=== PATIENT | female | born 1975 | race African-American/Black ===

== ENCOUNTER 2017-04-15 09:40 | Observation (INO) | payer OTHER ==
--- NOTE | ~2017-04-15 | EKG ---
PATIENT: VEE CUNHA UNIT #: [id number] Ventricular Rate: 70 BPM Atrial Rate: 70 BPM P-R Interval: 258 ms QRS Duration: 96 ms Q-T Interval: 380 ms QTC Calculation(Bezet): 410 ms P [place]: 61 degrees Calculated R [place]: -123 degrees Calculated T [place]: 46 degrees Diagnosis Line: Sinus rhythm with 1st degree A-V block Diagnosis Line: Indeterminate axis Diagnosis Line: Low voltage QRS Diagnosis Line: Cannot rule out Anterior infarct , age Diagnosis Line: undetermined Diagnosis Line: Abnormal ECG Diagnosis Line: When compared with ECG of 08-SEP-2015 07:44, Diagnosis Line: No significant change was found Diagnosis Line: Confirmed by COURTNEY COKER MD ([id number]) on Diagnosis Line: 04/17/2017 8:50:58 AM INTERPRETING MD: SHEELA WATKINS
--- NOTE | ~2017-04-15 | CT16 ---
[facility] A Service [facility] RADIOLOGY TEXT RESULTS PATIENT: VEE CUNHA LOCATION: [place] [address] : 75 UNIT #: [id number] AGE: [address]: Zuleika Quintero MD SEX: F ORDER DR: [id number] [address] [address] [id number] MR#: [id number] Acc #: [id number] NAME: VEE CUNHA : 1975 SEX: F STUDY DATE/TIME: 04/15/2017 11:59 UNIT: SED ROOM: STUDY DESCRIPTION: CT Angio Chest for PE Attending Physician: Livan Alicea M.D. Ordering Physician: Livan Alicea M.D. Primary Care Physician: No Primary Care Physician MEDICAL IMAGING REPORT This report is preliminary unless electronic signature is present. EXAM CT chest PE protocol HISTORY Chest pain starting yesterday. COMPARISON CT chest 09/07/2015. FINDINGS Axial images performed through the chest following IV contrast. 3D coronal and sagittal reconstructed images were reviewed at a workstation. This CT exam was performed with one or more of the following radiation dose reduction techniques: automatic exposure control, adjustment of mA and/or kV according to patient size, and iterative reconstruction. Pulmonary parenchyma normal. Trachea and bronchi unremarkable. Normal enhancement of the pulmonary arteries. Heart and aorta appear normal. No significant mediastinal or hilar lymphadenopathy. Visualized upper abdomen appears normal. Osseous structures, thoracic inlet appear normal. IMPRESSION Normal CT chest PE protocol. Dictated by... Tommy Rojas M.D. THIS IS AN ELECTRONICALLY VERIFIED REPORT Tommy Rojas M.D. at 04/15/2017 3:57 PM [facility] A Service [facility] RADIOLOGY TEXT RESULTS PATIENT: VEE CUNHA LOCATION: [place] [address] : 75 UNIT #: [id number] AGE: [address]: Zlueika Quintero MD SEX: F ORDER DR: Harshad TD: 04/15/2017 13:13 JOB #: [id number] MEDICAL IMAGING REPORT Page 1 of 1
--- NOTE | ~2017-04-15 | TH ---
Unit #: [id number] #: [id number] Patient: VEE CUNHA [id number] [address] [address] [id number] I MR#: [id number] NAME: VEE CUNHA : 1975 SEX: F STUDY DATE/TIME: 04/16/2017 UNIT: C5B ROOM: 562 STUDY DESCRIPTION: Lexiscan stress test - Nuclear Attending Physician: Zuleika Quintero M.D. Primary Care Physician: No Primary Care Physician CARDIOLOGY REPORT PROCEDURE PERFORMED Lexiscan Cardiolite stress test - Nuclear portion. PROCEDURE Using technetium 99m-labeled Cardiolite, rest and stress SPECT images were obtained. Multiple SPECT images were obtained in various views, including horizontal and vertical long axis and short axis views of the left ventricle. Images were obtained by gated SPECT method. The patient was administered 10.93 mCi of Cardiolite at rest. The patient was administered 31.3 mCi of Cardiolite after Lexiscan infusion was completed. On the stress images, there is normal perfusion noted. The rest images show normal perfusion. Comparing the rest and stress images, there is no stress-induced ischemia noted. The left ventricular ejection fraction is calculated to be 54%. There is no focal wall motion abnormality seen. CONCLUSION 1. No stress-induced ischemia noted. 2. The left ventricular ejection fraction is calculated to be 54%. 3. There is no focal wall motion abnormality seen. 4. Normal Lexiscan Cardiolite stress test. Dictated by... Avi Escamilla/giovanni TD: 04/16/2017 15:56 JOB #: [id number] CARDIOLOGY REPORT Page 1 of 1 X Zuleika Quintero MD <ELECTRONICALLY SIGNED> 06/15/17 1429 CARDIOLOGY REPORT
--- NOTE | ~2017-04-15 | DS ---
Unit #: [id number] #: [id number] Patient: VEE CUNHA [id number] [address] [address] [id number] I MR#: [id number] NAME: VEE CUNHA ROOM: 562 Age: 41 Sex: F Admission Date: 04/15/2017 : 1975 Discharge Date: 04/16/2017 Attending Physician: Zuleika Quintero M.D. Primary Care Physician: Dana Primary Care Physician DISCHARGE SUMMARY ADDENDUM The discharge date was 04/16/2017 with a discharge time of 1801 hours. Dictated by... CHENTE Lee TD: 04/24/2017 11:39 JOB #: [id number] DISCHARGE SUMMARY Page 1 of 1 X X DISCHARGE SUMMARY
--- NOTE | ~2017-04-15 | DS ---
Unit #: [id number] #: [id number] Patient: VEE CUNHA [id number] [facility]. [address] [address] [id number] I MR#: [id number] NAME: VEE CUNHA. ROOM: 562 Age: 41 Sex: F Admission Date: 04/15/2017 : 1975 Discharge Date: Attending Physician: Zuleika Quintero M.D. Primary Care Physician: No Primary Care Physician DISCHARGE SUMMARY SHORT-STAY SUMMARY HISTORY OF PRESENT ILLNESS This is a 41-year-old female who presented to [facility] with a complaint of chest pain. Yesterday, at approximately 3 p.m., she began to have left upper anterior chest pain which she describes as sharp that is nonradiating to her neck, arm, or jaw. The pain has been constant with no change with activity or movement. Today, she developed shortness of breath that accompanied chest pain. She went to [facility] for evaluation where initial troponin was negative. Electrocardiogram found her to have no acute ischemic changes. She denies a history of hypertension, hyperlipidemia, or diabetes. She does smoke cigars. She had a stress test several years ago which she was told was normal. PAST MEDICAL HISTORY 1. Gastroesophageal reflux disease. 2. Transient ischemic attack in 2012. 3. Active cigar smoker. 4. Active marijuana use. 5. Weight loss of approximately 20 pounds. PAST SURGICAL HISTORY 1. Tubal ligation. 2. section. SOCIAL HISTORY The patient works for the [employer]. She smokes two cigars daily. She admits to smoking marijuana. FAMILY HISTORY Negative for coronary artery disease. ALLERGIES Demerol and morphine. HOME MEDICATIONS No current medications. REVIEW OF SYSTEMS CONSTITUTIONAL: Positive for weight loss. She reports weighing 200 pounds in her 20s but now down to 150 pounds. No weight gain. HEENT: Positive for headache but no hearing or vision changes or difficulty with swallowing. No dizziness. Unit #: [id number] #: [id number] Patient: VEE CUNHA CARDIOVASCULAR: Has chest pain as described in the History of Present Illness. Denies palpitations. No paroxysmal nocturnal dyspnea or orthopnea. Denies syncope or near syncope. RESPIRATORY: Had dyspnea that accompanies chest pain. No cough or hemoptysis. GASTROINTESTINAL: No abdominal pain, nausea, or vomiting. No constipation or melena. EXTREMITIES: Negative for lower extremity edema. PHYSICAL EXAMINATION VITAL SIGNS: Blood pressure 130/68, heart rate 56, and temperature 98.3. GENERAL: This is a thin, 41-year-old female who is in no acute respiratory distress. EYES: Noted for bulging. NEUROLOGIC: She is awake, alert, and oriented. There are no focal weaknesses. NECK: Trachea is midline. No thyromegaly or lymphadenopathy. No jugular venous distention. HEART: S1 and S2 heart sounds are normal. No murmurs, rubs, or clicks. Regular rate and rhythm. LUNGS: Clear without rales, rhonchi, or wheezing. ABDOMEN: Soft and nontender with bowel sounds present. EXTREMITIES: Without leg edema. DIAGNOSTIC STUDIES LABORATORY: Glucose 98, BUN 12, creatinine 0.6, sodium 131, and potassium 4.1. Troponin less than 0.03 and less than 0.05 x2. Beta hCG negative. White count 9.3, hemoglobin 12.9, hematocrit 40, and platelet count is 182,000. IMAGING: CT of the chest is normal. CARDIOLOGY: EKG shows normal sinus rhythm with a first degree AV block with poor R wave progression. Low voltage QRS. IMPRESSION 1. Chest pain, rule out myocardial infarction. 2. Dyspnea. 3. History of transient ischemic attack. 4. Nicotine abuse. 5. Weight loss. PLAN 1. Will continue to trend troponin to rule out myocardial infarction. If normal, will proceed with exercise Cardiolite stress test in the a.m. 2. Lipid profile will be done. 3. Will also obtain thyroid functions to rule out thyroid disease. 4. Hemoglobin A1c will also be obtained. 5. Start the patient on anticoagulation with aspirin and Lovenox. 6. If stress test is negative, the patient can be discharged home. HOSPITAL COURSE The patient underwent Lexiscan Cardiolite stress test which found her to have no ischemia and ejection fraction of 54%. Echocardiogram showed ejection fraction of 60% with mild mitral regurgitation and trivial(?) mitral valve prolapse. There was mild tricuspid regurgitation and right ventricular systolic pressure of 34 mmHg. Cholesterol level was 145, triglycerides 65, LDL 83, HDL 49. TSH was 5.08. A CT of the chest was Unit #: [id number] #: [id number] Patient: ALPHONSE,VEE L negative for PE. She is stable for discharge home today. HOME MEDICINCES Include Tylenol 650 mg q.4 h. p.r.n. for pain. FOLLOWUP She can follow up with primary care physician in one to two weeks. JOB #: [id number] Dictated by... Sandra Henson/zana TD: 04/16/2017 17:46 JOB #: [id number] DISCHARGE SUMMARY Page 1 of 1 X Sebas Ochoa APRN X DISCHARGE SUMMARY
--- NOTE | ~2017-04-15 | HP ---
Unit #: [id number] #: [id number] Patient: VEE CUNHA [id number] [facility]. [place] [address] [facility]. [place], [place] [address] [id number] I MR#: [id number] NAME: VEE CUNHA. ROOM: 562 Age: 41 Sex: F Admission Date: 04/15/2017 : 1975 Attending Physician: Zuleika Quintero M.D. HISTORY AND PHYSICAL HISTORY OF PRESENT ILLNESS This is a 41-year-old female who presented to [facility] with a complaint of chest pain. Yesterday, at approximately 3 p.m., she began to have left upper anterior chest pain which she describes as sharp that is nonradiating to her neck, arm, or jaw. The pain has been constant with no change with activity or movement. Today, she developed shortness of breath that accompanied chest pain. She went to [facility] for evaluation where initial troponin was negative. Electrocardiogram found her to have no acute ischemic changes. She denies a history of hypertension, hyperlipidemia, or diabetes. She does smoke cigars. She had a stress test several years ago which she was told was normal. PAST MEDICAL HISTORY 1. Gastroesophageal reflux disease. 2. Transient ischemic attack in 2012. 3. Active cigar smoker. 4. Active marijuana use. 5. Weight loss of approximately 20 pounds. PAST SURGICAL HISTORY 1. Tubal ligation. 2. section. SOCIAL HISTORY The patient works for the [employer]. She smokes two cigars daily. She admits to smoking marijuana. FAMILY HISTORY Negative for coronary artery disease. ALLERGIES Demerol and morphine. HOME MEDICATIONS No current medications. REVIEW OF SYSTEMS CONSTITUTIONAL: Positive for weight loss. She reports weighing 200 pounds in her 20s but now down to 150 pounds. No weight gain. HEENT: Positive for headache but no hearing or vision changes or difficulty with swallowing. No dizziness. CARDIOVASCULAR: Has chest pain as described in the History of Present Illness. Denies palpitations. No paroxysmal nocturnal dyspnea or Unit #: [id number] #: [id number] Patient: VEE CUNHA orthopnea. Denies syncope or near syncope. RESPIRATORY: Had dyspnea that accompanies chest pain. No cough or hemoptysis. GASTROINTESTINAL: No abdominal pain, nausea, or vomiting. No constipation or melena. EXTREMITIES: Negative for lower extremity edema. PHYSICAL EXAMINATION VITAL SIGNS: Blood pressure 130/68, heart rate 56, and temperature 98.3. GENERAL: This is a thin, 41-year-old female who is in no acute respiratory distress. EYES: Noted for bulging. NEUROLOGIC: She is awake, alert, and oriented. There are no focal weaknesses. NECK: Trachea is midline. No thyromegaly or lymphadenopathy. No jugular venous distention. HEART: S1 and S2 heart sounds are normal. No murmurs, rubs, or clicks. Regular rate and rhythm. LUNGS: Clear without rales, rhonchi, or wheezing. ABDOMEN: Soft and nontender with bowel sounds present. EXTREMITIES: Without leg edema. DIAGNOSTIC STUDIES LABORATORY: Glucose 98, BUN 12, creatinine 0.6, sodium 131, and potassium 4.1. Troponin less than 0.03 and less than 0.05 x2. Beta hCG negative. White count 9.3, hemoglobin 12.9, hematocrit 40, and platelet count is 182,000. IMAGING: CT of the chest is normal. CARDIOLOGY: EKG shows normal sinus rhythm with a first degree AV block with poor R wave progression. Low voltage QRS. IMPRESSION 1. Chest pain, rule out myocardial infarction. 2. Dyspnea. 3. History of transient ischemic attack. 4. Nicotine abuse. 5. Weight loss. PLAN 1. Will continue to trend troponin to rule out myocardial infarction. If normal, will proceed with exercise Cardiolite stress test in the a.m. 2. Lipid profile will be done. 3. Will also obtain thyroid functions to rule out thyroid disease. 4. Hemoglobin A1c will also be obtained. 5. Start the patient on anticoagulation with aspirin and Lovenox. 6. If stress test is negative, the patient can be discharged home. 1. Dictated by Sebas Ochoa A.P.R.N. for Avi Escamilla/loan TD: 04/15/2017 18:24 JOB #: [id number] Unit #: [id number] #: [id number] Patient: VEE CUNHA HISTORY AND PHYSICAL Page 1 of 1 X Sebas Ochoa APRN HISTORY AND PHYSICAL
--- NOTE | ~2017-04-15 | EKG ---
PATIENT: VEE CUNHA UNIT #: [id number] Ventricular Rate: 72 BPM Atrial Rate: 72 BPM P-R Interval: 240 ms QRS Duration: 100 ms Q-T Interval: 384 ms QTC Calculation(Bezet): 420 ms P [place]: -12 degrees Calculated R [place]: -150 degrees Calculated T [place]: 12 degrees Diagnosis Line: Sinus rhythm with 1st degree A-V block Diagnosis Line: Indeterminate axis Diagnosis Line: Borderline ECG Diagnosis Line: When compared with ECG of 15-APR-2017 09:49, Diagnosis Line: (unconfirmed) Diagnosis Line: No significant change was found Diagnosis Line: Confirmed by KELLEY COREA MD ([id number]) on Diagnosis Line: 04/18/2017 1:11:38 PM INTERPRETING MD: BENJIE
--- NOTE | ~2017-04-15 | ST ---
Unit #: [id number] #: [id number] Patient: VEE CUNHA [id number] [address] [address] [id number] I MR#: [id number] NAME: VEE CUNHA. : 1975 SEX: F STUDY DATE/TIME: UNIT: C5B ROOM: 562 STUDY DESCRIPTION: Stress Test Attending Physician: Zuleika Quintero M.D. Primary Care Physician: No Primary Care Physician CARDIOLOGY REPORT EXAM Lexiscan Cardiolite Stress Test It is noted we attempted to do a regular Cardiolite exercise stress test but patient became very dyspneic and had onset of sharp, shooting pain in the left anterior chest wall. Aborted the test and then changed to a walking [place]. EKG during that short period of attempted regular treadmill test was unremarkable. DESCRIPTION Baseline EKG - normal sinus rhythm with ventricular rate 72 beats per minute with low voltage in AVL and also in V1 and V2. Q waves noted in V1 and V2. Slow R wave progression. She has a first degree AV block. Lexiscan is a four minute test with Lexiscan being injected within the first minute followed by Cardiolite. EKG during the test showed the patient's heart rate increased up to 133 beats/minute within the first minute of the [place] portion. The patient had increased shortness of breath and fatigueness and had some dry heaving at the peak portion of the test. Maximum heart rate response was 133 beats/minute, maximum blood pressure response was 141/83 mmHg. The patient, at the end of recovery phase, returned to baseline. Denies any chest pain during this test. Cardiolite was injected after Lexiscan within the first minute of the test. Radionuclide test pending. Please correlate with nuclear images. Dictated by... Dana Prasad A.P.R.N. for Avi Escamilla/greta TD: 04/16/2017 12:12 JOB #: [id number] Unit #: [id number] #: [id number] Patient: VEE CUNHA CARDIOLOGY REPORT Page 1 of 1 X Dana Prasad APRN CARDIOLOGY REPORT
[~2017-04-15 09:40] MED LIST: BACTRIM DS TABL1 TA1 PO; BENTYL20 MG PO; DEPO-PROVER150 MG/ML INJ; FLAGYL PO; HYDROCODON-ACE1 EAC7 PO; IRON1 TA1 PO; ONE DAILY ADUL1 EACH PO; ORUDIS75 M1 DOB; PRILOSEC40 MG PO; TYLENOL #3 PO; VOLTAREN75 MG PO; ZOFRAN ODT4 MG PO
[2017-04-15 10:21] LABS: BASOPHIL# 0.1 X10e3 (0-0.3); BASOPHIL% 0.9 % (0-2.5); EOSINOPHIL# 0.1 X10e3 (0-0.7); EOSINOPHIL% 1.3 % (0.0-7.0); HEMOGLOBIN 12.9 gm/dL (12.0-16.0); LYMPHOCYTE# 1.6 X10e3 (1.0-3.5); LYMPHOCYTE% 17.6 % (17.0-45.0); MEAN CELL VOLUME 73.3 FL (83-96); MEAN CORPUSCULAR HEMOGLOBIN 23.6 PG (28-34); MEAN CORPUSCULAR HGB CONC 32.2 g/dL (30-36); MEAN PLATELET VOLUME 8.9 FL (6.5-11.5); MONOCYTE# 0.7 X10e3 (0-1.0); MONOCYTE% 7.5 % (3.0-12.0); NEUTROPHIL# 6.8 X10e3 (1.5-7.1); NEUTROPHIL% 72.7 % (40-75); PLATELET COUNT 182 X10e3 (140-420); RED BLOOD COUNT 5.46 X10e (3.90-5.30); RED CELL DISTRIBUTION WIDTH 16.3 % (11.0-15.5); WHITE BLOOD COUNT 9.3 X10e3 (4.0-10.5)
[2017-04-15 10:26] LABS: POC - CKMB <1.0 ng/mL (0.0-7.9); POC - TROPONIN <0.05 ng/mL (<=0.05)
[2017-04-15 10:33] LABS: DIFF IND NO
[2017-04-15 10:45] LABS: ALBUMIN SERUM 4.7 g/dL (3.5-5.0); BILIRUBIN, DIRECT 0.1 mg/dL (0.0-0.2); BILIRUBIN,TOTAL 1.1 mg/dL (0.2-2.0); CALCIUM SERUM 8.8 mg/dL (8.4-10.2); CREATININE SERUM 0.6 mg/dL (0.6-1.4); GLOM FILT RATE Estimated 131.2 mL/min (>60); POTASSIUM 4.1 mmol/L (3.5-5.1); PROTEIN TOTAL SERUM 7.4 g/dL (6.0-8.3)
[2017-04-15 10:47] LABS: INR 1.2; PROTHROMBIN TIME (PATIENT) 13.1 SECONDS (9.5-12.4)
[2017-04-15 10:54] LABS: PARTIAL THROMBOPLASTIN TIME 28.9 SECONDS (25.6-38.1)
[2017-04-15 12:05] LABS: POC - CKMB <1.0 ng/mL (0.0-7.9); POC - TROPONIN <0.05 ng/mL (<=0.05)
[2017-04-15 17:28] LABS: CK TOTAL 41 IU/L (26-140)
[2017-04-16 00:04] LABS: CK TOTAL 43 IU/L (26-140)
[2017-04-16 05:18] LABS: BUN/CREATININE RATIO 15.71; CREATININE SERUM 0.7 mg/dL (0.6-1.4); GLOM FILT RATE Estimated 124.7 mL/min (>60); MAGNESIUM 1.9 mg/dL (1.6-3.0); POTASSIUM 3.6 mmol/L (3.5-5.1)
[2017-04-16 07:14] LABS: CHOLESTEROL 145 mg/dL (0-200); HDL CHOLESTEROL 49 mg/dL (35-95); LDL CHOLESTEROL 83 mg/dL (-130); LDL/HDL RATIO 2 RATIO (0-4); TRIGLYCERIDES 65 mg/dL (10-160)
[2017-04-16 07:20] LABS: CK TOTAL 38 IU/L (26-140)
[2017-04-16] MEDS ORDERED: ACETAMINOPHEN650 M4 PO (17:02)
== END 2017-04-16 18:02 | disposition home or self-care (01) | DRG 313 ==
LOC: SED 09:40 → CEDOF 13:35 → SED 13:53 → CEDOF 15:35 → C5B 15:35
PROVIDERS: Emergency Medicine; Internal Medicine Cardiovascular Disease; Nurse Practitioner
DX: R07.89 Other chest pain (principal); R06.00 Dyspnea, unspecified; I08.1 Rheumatic disorders of both mitral and tricuspid valves; I44.0 Atrioventricular block, first degree; F17.290 Nicotine dependence, other tobacco product, uncomplicated; K21.9 Gastro-esophageal reflux disease without esophagitis; F12.90 Cannabis use, unspecified, uncomplicated; Z86.73 Personal history of transient ischemic attack (TIA), and cerebral infarction without residual deficits; Z98.51 Tubal ligation status; Z88.5 Allergy status to narcotic agent; Z88.8 Allergy status to other drugs, medicaments and biological substances
CPT/HCPCS: 36415; 71275; 78452; 80048; 80061; 80076; 82550; 82553; 83036; 83735; 84443; 84484; 84703; 85025; 85379; 85610; 85730; 93005; 93017; 93306; 96374; 96375; 96376; 99285; A9500; C9113; G0378; J1650; J2405; J2785; Q9967